=== PATIENT | female | born 1970 | race Caucasian/White ===

== ENCOUNTER 2016-11-17 04:54 | Emergency (ER) | payer OTHER ==
[2016-11-17 05:13] LABS: BILIRUBIN 1+ mg/dL (NEGATIVE); BLOOD 3+ Ery/uL (NEGATIVE); CLARITY CLOUDY (CLEAR); COLOR ORANGE (YELLOW); GLUCOSE (U) TRACE mg/dL (NORMAL); KETONE (U) NEGATIVE (NEGATIVE); LEUKOCYTES 3+ Leu/uL (NEGATIVE); NITRITE POSITIVE (NEGATIVE); PROTEIN 2+ mg/dL (NEGATIVE); pH 5.5 (5.0-9.0)
[2016-11-17 05:20] LABS: BACTERIA 1+; URINARY RBC TNTC; URINARY WBC TNTC
== END 2016-11-17 05:45 | disposition home or self-care (01) ==
LOC: FER 04:54
PROVIDERS: Emergency Medicine Emergency Medical Services
DX: N30.01 Acute cystitis with hematuria (principal); F32.9 Major depressive disorder, single episode, unspecified; F17.210 Nicotine dependence, cigarettes, uncomplicated; Z90.710 Acquired absence of both cervix and uterus; Z90.49 Acquired absence of other specified parts of digestive tract; Z79.899 Other long term (current) drug therapy
CPT/HCPCS: 81001; 87088; J1885

== ENCOUNTER 2022-01-18 08:47 | Emergency (ER) | payer MEDICARE ==
[2022-01-18 10:32] LABS: BASOPHIL 0.2 % (0-2); EOSINOPHIL 0.4 % (0-5); HCT 44.2 % (37.0-47.0); HGB 14.5 g/dl (12.5-16.0); LYMPHOCYTE 13.5 % (15-48); MCH 30.6 pg (25.0-31.0); MCHC 32.8 g/dL (32.0-36.0); MCV 93.2 fL (78.0-100.0); MONOCYTE 10.3 % (0-12); MPV 9.5 fL (6.0-9.5); NEUTROPHIL 75.1 % (41-80); NRBC 0; PLT 220 K/uL (150-400); RBC 4.74 M/uL (4.20-5.40); RDW 13.3 % (11.5-14.0); WBC 9.8 K/uL (4.0-10.5)
== END 2022-01-18 11:23 | disposition home or self-care (01) ==
LOC: FER 08:47
PROVIDERS: Emergency Medicine
DX: S40.021A Contusion of right upper arm, initial encounter (principal); F17.210 Nicotine dependence, cigarettes, uncomplicated; Z28.310 Unvaccinated for COVID-19
CPT/HCPCS: 36415; 85025; 99283; J1885